=== PATIENT | male | born 1990 | race Hispanic/Latino ===

== ENCOUNTER 2019-01-07 12:32 | Emergency (ER) | payer SELFPAY ==
[2019-01-07] MEDS ORDERED: TETRACAINE HCL 0.5% 4ML OPTH ONE (13:52)
[2019-01-07] MEDS ORDERED: FLUORESCEIN SODIUM 1 MG/WRAP ONE (13:52)
[2019-01-07] MEDS ORDERED: TETANUS & DIPHTHERIA TOX,ADULT 0.5 ML VIAL ONE (14:17)
--- NOTE | 2019-01-07 14:21 | ER ---
Nurse's Notes [facility] Name: Franklin Lin Age: 28 yrs Sex: Male : 1990 Arrival Date: 01/07/2019 Time: 12:35 Bed 10 Private MD: Diagnosis: Injury of conjunctiva and corneal abrasion without foreign body, right eye Presentation: 01/07 12:37 Presenting complaint: Right eye pain and redness x 2 days. Also reports itching hb sensation when eye open. Transition of care: patient was not received from another setting of care. Onset of symptoms was January 06, 2019. Risk Assessment: Do you want to hurt yourself or someone else? Patient reports no desire to harm self or others. Initial Sepsis Screen: Does the patient meet any 2 criteria? No. Patient's initial sepsis screen is negative. Does the patient have a suspected source of infection? No. Patient's initial sepsis screen is negative. Care prior to arrival: None. 12:37 Method Of Arrival: Ambulatory hb 12:37 Acuity: JENNY 4 hb Historical: - Allergies: 12:38 No Known Allergies; hb - Home Meds: 12:38 None [Active]; hb - PMHx: 12:38 None; hb - PSHx: 12:38 None; hb - Immunization history:: Adult Immunizations up to date. - Social history:: Smoking status: Patient/guardian denies using tobacco. - Ebola Screening: : No symptoms or risks identified at this time. Screenin:58 Abuse screen: Denies threats or abuse. Nutritional screening: No deficits noted. tw2 Tuberculosis screening: No symptoms or risk factors identified. Fall Risk None identified. Assessment: 13:50 General: Appears in no apparent distress. Behavior is calm, cooperative, appropriate tw2 for age. Pain: Complains of pain in right eye. Neuro: Level of Consciousness is awake, alert, obeys commands, Oriented to person, place, time, situation. Cardiovascular: Patient's skin is warm and dry. Respiratory: Airway is patent Respiratory effort is even, unlabored, Respiratory pattern is regular, symmetrical. GI: No signs and/or symptoms were reported involving the gastrointestinal system. EENT: Reports increased redness to RIGHT eye. Vital Signs: 12:38 BP 135 / 88; Pulse 84; Resp 16; Temp 98.6; Pulse Ox 100% on R/A; Weight 94.35 kg; hb Height 5 ft. 5 in. (165.10 cm); Pain 1/10; 12:38 Body Mass Index 34.61 (94.35 kg, 165.10 cm) hb Visual Acuity: 14:40 Left Eye Visual acuity 20/25, ; Right Eye Visual acuity 20/40, ; Both Eyes Visual iw acuity 20/25; Without Lenses; ED Course: 12:35 Patient arrived in ED. mr 12:37 Triage completed. hb 12:38 Arm band placed on. hb 13:50 Bed in low position. Call light in reach. tw2 13:57 Champ Diego NP is PHCP. pm1 13:57 Keaton Anderson MD is Attending Physician. pm1 14:00 Assist provider with eye exam of right eye. using fluorescein stain, Performed by iw Champ Diego NP Patient tolerated well. Patient did not have IV access during this emergency room visit. 14:16 Aruna Hughes RN is Primary Nurse. iw Administered Medications: 14:38 Drug: Tetracaine Drops 0.5 % 1 drops Route: Ophthalmic; Site: right eye; iw 14:38 Drug: Tetanus-Diphtheria Toxoid Adult 0.5 ml {Caddie Supervisor: [employer]. Exp: iw 10/30/2019. Lot #: [id number]. } Route: IM; Site: right deltoid; 14:42 Follow up: Response: No adverse reaction iw Outcome: 14:21 Discharge ordered by MD. pm1 14:43 Discharged to home ambulatory, with family. hb 14:43 Condition: stable 14:43 Discharge instructions given to patient, Instructed on discharge instructions, follow up and referral plans. medication usage, Demonstrated understanding of instructions, follow-up care, medications, Prescriptions given X 1. 14:47 Patient left the ED. hb Signatures: Lorraine Mendoza mr Aruna Hughes RN RN iw Champ Diego NP REED OR WIND INSTRUMENT REPAIRER pm1 Bambi Estrada RN RN Linsey Fraser RN RN tw2
--- NOTE | 2019-01-07 14:22 | EDPHYS ---
Physician Documentation [facility] Name: Franklin Lin Age: 28 yrs Sex: Male : 1990 Arrival Date: 01/07/2019 Time: 12:35 Bed 10 Private MD: ED Physician Keaton Anderson HPI: 01/07 14:18 This 28 yrs old Male presents to ER via Ambulatory with complaints of Right pm1 Eye Problem. 14:18 The patient is experiencing foreign body sensation, to the right eye, caused by an pm1 unknown mechanism. Onset: The symptoms/episode began/occurred this morning. Duration: the symptoms are continuous. Aggravated by nothing. Alleviated by nothing. Associated signs and symptoms: Pertinent negatives: chills, fever, headache, runny nose. Patient does not utilize any form of vision correction. Severity of symptoms: in the emergency department the symptoms are unchanged. The patient has not experienced similar symptoms in the past. The patient has not recently seen a physician. Historical: - Allergies: 12:38 No Known Allergies; hb - Home Meds: 12:38 None [Active]; hb - PMHx: 12:38 None; hb - PSHx: 12:38 None; hb - Immunization history:: Adult Immunizations up to date. - Social history:: Smoking status: Patient/guardian denies using tobacco. - Ebola Screening: : No symptoms or risks identified at this time. ROS: 14:18 Constitutional: Negative for fever, chills, and weight loss. pm1 14:18 ENT: Negative for injury, pain, and discharge, Neck: Negative for injury, pain, and swelling, Cardiovascular: Negative for chest pain, palpitations, and edema, Respiratory: Negative for shortness of breath, cough, wheezing, and pleuritic chest pain, Abdomen/GI: Negative for abdominal pain, nausea, vomiting, diarrhea, and constipation, MS/Extremity: Negative for injury and deformity, Skin: Negative for injury, rash, and discoloration, Neuro: Negative for headache, weakness, numbness, tingling, and seizure. 14:18 Eyes: Positive for foreign body sensation, itching, redness, of the right eye. Exam: 14:18 Constitutional: This is a well developed, well nourished patient who is awake, alert, pm1 and in no acute distress. Head/Face: Normocephalic, atraumatic. 14:18 ENT: Nares patent. No nasal discharge, no septal abnormalities noted. Tympanic membranes are normal and external auditory canals are clear. Oropharynx with no redness, swelling, or masses, exudates, or evidence of obstruction, uvula midline. Mucous membranes moist. Neck: Trachea midline, no thyromegaly or masses palpated, and no cervical lymphadenopathy. Supple, full range of motion without nuchal rigidity, or vertebral point tenderness. No Meningismus. Chest/axilla: Normal chest wall appearance and motion. Nontender with no deformity. No lesions are appreciated. Cardiovascular: Regular rate and rhythm with a normal S1 and S2. No gallops, murmurs, or rubs. Normal PMI, no JVD. No pulse deficits. Respiratory: Lungs have equal breath sounds bilaterally, clear to auscultation and percussion. No rales, rhonchi or wheezes noted. No increased work of breathing, no retractions or nasal flaring. Abdomen/GI: Soft, non-tender, with normal bowel sounds. No distension or tympany. No guarding or rebound. No evidence of tenderness throughout. Back: No spinal tenderness. No costovertebral tenderness. Full range of motion. Skin: Warm, dry with normal turgor. Normal color with no rashes, no lesions, and no evidence of cellulitis. MS/ Extremity: Pulses equal, no cyanosis. Neurovascular intact. Full, normal range of motion. 14:18 Eyes: Periorbital structures: appear normal, Pupils: no acute changes, normal size, normal reaction to light, Extraocular movements: intact throughout, Conjunctiva: injected, in the right eye, Corneas: abrasion, is not appreciated, foreign body, is not appreciated, a fluorescein strip employed to appreciate the findings, Sclera: abrasion, of the lateral aspect of conjunctiva of right eye 14:18 Neuro: Orientation: is normal, Motor: is normal, moves all fours. Vital Signs: 12:38 BP 135 / 88; Pulse 84; Resp 16; Temp 98.6; Pulse Ox 100% on R/A; Weight 94.35 kg; hb Height 5 ft. 5 in. (165.10 cm); Pain 1/10; 12:38 Body Mass Index 34.61 (94.35 kg, 165.10 cm) hb Visual Acuity: 14:40 Left Eye Visual acuity 20/25, ; Right Eye Visual acuity 20/40, ; Both Eyes Visual iw acuity 20/25; Without Lenses; MDM: 13:57 Patient medically screened. pm1 14:18 Data reviewed: vital signs. Data interpreted: Pulse oximetry: on room air is 100 %. pm1 Interpretation: normal. Counseling: I had a detailed discussion with the patient and/or guardian regarding: the historical points, exam findings, and any diagnostic results supporting the discharge/admit diagnosis, the need for outpatient follow up, for definitive care, an opthalmologist, to return to the emergency department if symptoms worsen or persist or if there are any questions or concerns that arise at home. 01/07 14:13 Order name: Visual Acuity; Complete Time: 14:39 pm1 01/07 14:13 Order name: Eye Tray; Complete Time: 14:39 pm1 01/07 14:13 Order name: Fluoresene Opth strip; Complete Time: 14:39 pm1 Administered Medications: 14:38 Drug: Tetracaine Drops 0.5 % 1 drops Route: Ophthalmic; Site: right eye; iw 14:38 Drug: Tetanus-Diphtheria Toxoid Adult 0.5 ml {Pension Fund Manager: [employer]. Exp: iw 10/30/2019. Lot #: [id number]. } Route: IM; Site: right deltoid; 14:42 Follow up: Response: No adverse reaction Disposition: 01/07/19 14:21 Discharged to Home. Impression: Injury of conjunctiva and corneal abrasion without foreign body, right eye. - Condition is Stable. - Discharge Instructions: Corneal Abrasion. - Prescriptions for Erythromycin 5 mg/gram (0.5 %) Ophthalmic Ointment - apply 1 ribbon by OPHTHALMIC route every 8 hours; 1 tube. - Medication Reconciliation Form, Thank You Letter, Antibiotic Education, Prescription Opioid Use, Work release form form. - Follow up: Emergency Department; When: As needed; Reason: Worsening of condition. Follow up: Private Physician; When: 2 - 3 days; Reason: Recheck today's complaints, Continuance of care, Re-evaluation by your physician. - Problem is new. - Symptoms have improved. Addendum: 01/09/2019 06:55 Co-signature as Attending Physician, Keaton Anderson MD. g s Signatures: Aruna Hughes RN RN iw Champ Diego NP DEFENCE INTELLIGENCE ANALYST pm1 Bambi Estrada RN RN Keaton Anderson MD MD gs Corrections: (The following items were deleted from the chart) 01/07 14:47 14:21 01/07/2019 14:21 Discharged to Home. Impression: Injury of conjunctiva and hb corneal abrasion without foreign body, right eye. Condition is Stable. Forms are Work release form, Medication Reconciliation Form, Thank You Letter, Antibiotic Education, Prescription Opioid Use. Follow up: Emergency Department; When: As needed; Reason: Worsening of condition. Follow up: Private Physician; When: 2 - 3 days; Reason: Recheck today's complaints, Continuance of care, Re-evaluation by your physician. Problem is new. Symptoms have improved. pm1
[2019-01-07 14:52] VITALS: BP 135/88; TEMP 98.6; O2SAT 100
== END 2019-01-07 14:47 | disposition home or self-care (01) ==
LOC: ER 12:32
DX: S05.01XA Injury of conjunctiva and corneal abrasion without foreign body, right eye, initial encounter (principal); Z23 Encounter for immunization
CPT/HCPCS: 90471; 90714; 99283

== ENCOUNTER 2021-03-11 18:53 | Emergency (ER) | payer OTHER, SELFPAY ==
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
--- NOTE | 2021-03-11 20:37 | RAD REPORT ---
EXAM DESCRIPTION: RAD - Wrist Right 3 View - 03/11/2021 8:07 pm CLINICAL HISTORY: PAIN Pain COMPARISON: No comparisons FINDINGS: Linear lucency is seen in the region of the scaphoid most compatible with a scaphoid fract ure. No dislocation evident. IMPRESSION: Scaphoid fracture.
[2021-03-11] MEDS ORDERED: KETOROLAC 30 MG/ML INJ ONE (20:57)
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
[2021-03-11 22:29] VITALS: BP 140/96; TEMP 98; O2SAT 100
== END 2021-03-11 22:23 | disposition home or self-care (01) ==
LOC: ER 18:53
DX: S06.0X0A Concussion without loss of consciousness, initial encounter (principal); S62.001A Unspecified fracture of navicular [scaphoid] bone of right wrist, initial encounter for closed fracture; S60.811A Abrasion of right wrist, initial encounter; V49.40XA Driver injured in collision with unspecified motor vehicles in traffic accident, initial encounter; Z88.0 Allergy status to penicillin
CPT/HCPCS: 70450; 71045; 72125; 96372; 99284

== ENCOUNTER 2023-01-14 00:48 | Emergency (ER) | payer SELFPAY ==
[2023-01-14] MEDS ORDERED: dexAMETHasone 10 MG/ML VIAL ONE (01:26)
[2023-01-14] MEDS ORDERED: CLINDAMYCIN 900MG/D5W 900 MG/50 ML IVPB IV ONE (01:26)
[2023-01-14] MEDS ORDERED: NA CHLORIDE 0.9% 1,000 ML ONE (01:27)
--- NOTE | 2023-01-14 02:15 | EDPHYS ---
Physician Documentation [facility] Name: Franklin Lin Age: 32 yrs Sex: Male : 1990 Arrival Date: 01/14/2023 Time: 00:48 Bed 5 Private MD: ED Physician Bartolome Collazo HPI: 01/14 01:05 This 32 yrs old Male presents to ER via Ambulatory with complaints of Lips cp Swelling. 01:05 The patient presents with swelling. The problem is located in the upper lip. cp 01:05 Onset: The symptoms/episode began/occurred gradually, last week, and became worse today.cp 01:05 Duration: The symptoms are continuous, and are steadily getting worse. Associated signs cp and symptoms: Pertinent positives: fever, swelling, facial, Pertinent negatives: dysphagia, shortness of breath. 01:05 Patient reports increasing swelling to upper lip since last week after expressing "pus" cp from pimple. Historical: - Allergies: 01:00 No Known Allergies; cm10 - Home Meds: 01:00 None [Active]; cm10 - PMHx: 01:00 None; cm10 - PSHx: 01:00 None; cm10 - Immunization history:: Adult Immunizations unknown. - Social history:: Smoking status: Patient denies any tobacco usage or history of. ROS: 01:10 Constitutional: Negative for fever, poor PO intake, cp 01:10 ENT: Negative for difficulty swallowing, difficulty handling secretions, 01:10 Respiratory: Negative for cough, shortness of breath, wheezing, cp 01:10 Abdomen/GI: Negative for abdominal pain, vomiting, diarrhea, constipation, 01:10 Skin: Positive for cellulitis, swelling, of the upper lip, 01:10 All other systems are negative, Exam: 01:15 Constitutional: The patient appears in no acute distress, alert, awake, non-toxic, well cp developed, well nourished, overweight 01:15 Eyes: Periorbital structures: appear normal, Conjunctiva: normal, no exudate, no cp injection, Sclera: no appreciated abnormality, Lids and lashes: appear normal, bilaterally, 01:15 ENT: External ear(s): are unremarkable, Ear canal(s): are normal, clear, TM's: dullness, bilaterally, Nose: is normal, Mouth: Lips: mild swelling of upper lip with areas of erythema, Oral mucosa: moist, Tongue: is normal, Posterior pharynx: Airway: no evidence of obstruction, patent, swelling, is not appreciated, erythema, is not appreciated, 01:15 Neck: ROM/movement: is normal, is supple, without pain, no range of motions limitations, 01:15 Chest/axilla: Inspection: normal, 01:15 Cardiovascular: Rate: normal, Rhythm: regular, 01:15 Respiratory: the patient does not display signs of respiratory distress, Respirations: normal, no use of accessory muscles, no retractions, labored breathing, is not present, 01:15 Abdomen/GI: Exam negative for discomfort, distension, guarding, Vital Signs: 00:58 BP 150 / 101; Pulse 86; Resp 16 S; Temp 98.1; Pulse Ox 100% on R/A; Weight 102.06 kg; cm10 Height 5 ft. 5 in. ; Pain 0/10; 00:58 Body Mass Index 37.44 (102.06 kg, 165.1 cm) cm10 00:58 Pain Scale: Adult cm10 MDM: 01:16 Patient medically screened. cp 01:30 Differential diagnosis: cellulitis, abscess, herpes, impetigo. cp 02:13 Data reviewed: vital signs, nurses notes, lab test result(s). cp 02:13 Consideration of Admission/Observation Escalation of care including cp admission/observation considered. I considered the following discharge prescriptions or medication management in the emergency department Medications were administered in the Emergency Department. See MAR. Counseling: I had a detailed discussion with the patient and/or guardian regarding the historical points, exam findings, and any diagnostic results supporting the discharge/admit diagnosis, lab results, to return to the emergency department if symptoms worsen or persist or if there are any questions or concerns that arise at home. Response to treatment: the patient's symptoms have mildly improved after treatment, and as a result, I will discharge patient. 01/14 01:03 Order name: IV; Complete Time: 01:20 cp Administered Medications: 01:17 Drug: NS 0.9% IV 1000 ml IV at 1 bolus Per protocol; 1000 mL bolus Route: IV; Rate: 1 la4 bolus; Infused Over: 30 mins; Site: right antecubital; Delivery: Primary tubing; 02:22 Follow up: IV Status: Completed infusion; IV Intake: 1000ml rv 01:19 Drug: Decadron - Dexamethasone IVP 10 mg IVP once Route: IVP; Rate: bolus; Infused la4 Over: 1 mins; Site: right antecubital; : Follow up: Response: No adverse reaction rv 01:20 Drug: Clindamycin IVPB 900 mg IVPB once over 30 mins; (mix in 50 mL) Route: IVPB; Rate: la4 100 ml/hr; Infused Over: 30 mins; Site: right antecubital; Delivery: Primary tubing; : Follow up: Response: No adverse reaction; IV Status: Completed infusion; IV Intake: 50mlrv Disposition Summary: 01/14/23 02:14 Discharge Ordered Notes: Location: Home cp Problem: new cp Symptoms: have improved cp Condition: Stable cp Diagnosis - Cellulitis of face cp Followup: cp - With: Private Physician - When: 1 - 2 days - Reason: Recheck today's complaints Discharge Instructions: - Discharge Summary Sheet cp - Cellulitis, Adult cp Forms: - Medication Reconciliation Form cp - Thank You Letter cp - Antibiotic Education cp - Prescription Opioid Use cp - Patient Portal Instructions cp - Leadership Thank You Letter cp - Work release form as6 Prescriptions: - mupirocin 2 % Topical ointment - apply 1 application TOPICAL route 3 times per day; 15 gram tube; Refills: 0, cp Product Selection Permitted - Clindamycin HCl 300 mg Oral Capsule - take 1 capsule ORAL route every 6 hours for 10 days; 40 capsule; Refills: 0, cp Product Selection Permitted Addendum: 01/15/2023 03:02 Co-signature as Attending Physician, Bratolome Collazo MD. e c2 Signatures: Dispatcher [employer] Carmine Vazquez PA PA cp Martinez, Clarissa RN RN cm10 Bartolome Collazo MD MD ec2 Saleem Way RN RN la4 Matty Parmar RN rv Corrections: (The following items were deleted from the chart) 01/14 01:01 01:00 Allergies: PENICILLINS; cm10 cm10
--- NOTE | 2023-01-14 02:15 | ER ---
Nurse's Notes [facility] Name: Franklin Lin Age: 32 yrs Sex: Male : 1990 Arrival Date: 01/14/2023 Time: 00:48 Bed 5 Private MD: Diagnosis: Cellulitis of face Presentation: 01/14 00:58 Chief complaint: Patient states: upper lip swelling onset last week. Pt states that he cm10 had what looked like a pimple and he popped it. Pt states that now swelling is getting worse. No difficulty swallowing. Coronavirus screen: Vaccine status: Patient reports being unvaccinated. Client denies travel out of the [place] in the last 14 days. Ebola Screen: Patient denies travel to an Ebola-affected area in the 21 days before illness onset. No symptoms or risks identified at this time. Initial Sepsis Screen: Does the patient meet any 2 criteria? No. Patient's initial sepsis screen is negative. Does the patient have a suspected source of infection? No. Patient's initial sepsis screen is negative. Risk Assessment: Do you want to hurt yourself or someone else? Patient reports no desire to harm self or others. Onset of symptoms was January 14, 2023. 00:58 Method Of Arrival: Ambulatory cm10 00:58 Acuity: JENNY 3 cm10 Triage Assessment: 01:00 General: Appears in no apparent distress. comfortable, Behavior is calm, cooperative. cm10 Pain: Denies pain. EENT: No deficits noted. No signs and/or symptoms were reported regarding the EENT system. Neuro: No deficits noted. Level of Consciousness is awake, alert, obeys commands, Oriented to person, place, time, situation. Cardiovascular: No deficits noted. Patient's skin is warm and dry. Respiratory: No deficits noted. Airway is patent Respiratory effort is even, unlabored, Respiratory pattern is regular, symmetrical. GI: No deficits noted. No signs and/or symptoms were reported involving the gastrointestinal system. : No deficits noted. No signs and/or symptoms were reported regarding the genitourinary system. Derm: No deficits noted. Skin is intact, Skin is pink, warm \T\ dry. Musculoskeletal: No deficits noted. Range of motion: intact in all extremities. Historical: - Allergies: 01:00 No Known Allergies; cm10 - Home Meds: 01:00 None [Active]; cm10 - PMHx: 01:00 None; cm10 - PSHx: 01:00 None; cm10 - Immunization history:: Adult Immunizations unknown. - Social history:: Smoking status: Patient denies any tobacco usage or history of. Screenin:02 [facility] ED Fall Risk Assessment (Adult) History of falling in the last 3 months, cm10 including since admission No falls in past 3 months (0 pts) Confusion or Disorientation No (0 pts) Intoxicated or Sedated No (0 pts) Impaired Gait No (0 pts) Mobility Assist Device Used No (0 pt) Altered Elimination No (0 pt) Score/Fall Risk Level 0 - 2 = Low Risk Oriented to surroundings, Maintained a safe environment, Educated pt \T\ family on fall prevention, incl call for assistance when getting out of bed, Assessed \T\ reinforced patient's understanding of fall precautions, Hourly rounding (assess needs \T\ fall precautionary measures) done. Abuse screen: Denies threats or abuse. Denies injuries from another. Nutritional screening: No deficits noted. Tuberculosis screening: No symptoms or risk factors identified. Vital Signs: 00:58 BP 150 / 101; Pulse 86; Resp 16 S; Temp 98.1; Pulse Ox 100% on R/A; Weight 102.06 kg; cm10 Height 5 ft. 5 in. ; Pain 0/10; 00:58 Body Mass Index 37.44 (102.06 kg, 165.1 cm) cm10 00:58 Pain Scale: Adult cm10 ED Course: 00:51 Patient arrived in ED. mr 00:56 Carmine Patel PA is PHCP. cp 00:56 Bartolome Collazo MD is Attending Physician. cp 01:00 Triage completed. cm10 01:02 Arm band placed on Patient placed in waiting room. cm10 01:02 Patient has correct armband on for positive identification. Provided Education on: ER cm10 process and procedures.. Cardiac monitoring not applicable on this patient. 01:02 No provider procedures requiring assistance completed. Patient did not have IV access cm10 during this emergency room visit. 01:05 Kraig Treviño, AURY is Primary Nurse. bp 01:21 Inserted saline lock: 20 gauge 22 gauge in right antecubital area, using aseptic la4 technique. Administered Medications: 01:17 Drug: NS 0.9% IV 1000 ml IV at 1 bolus Per protocol; 1000 mL bolus Route: IV; Rate: 1 la4 bolus; Infused Over: 30 mins; Site: right antecubital; Delivery: Primary tubing; : Follow up: IV Status: Completed infusion; IV Intake: 1000ml rv 01:19 Drug: Decadron - Dexamethasone IVP 10 mg IVP once Route: IVP; Rate: bolus; Infused la4 Over: 1 mins; Site: right antecubital; : Follow up: Response: No adverse reaction rv 01:20 Drug: Clindamycin IVPB 900 mg IVPB once over 30 mins; (mix in 50 mL) Route: IVPB; Rate: la4 100 ml/hr; Infused Over: 30 mins; Site: right antecubital; Delivery: Primary tubing; Follow up: Response: No adverse reaction; IV Status: Completed infusion; IV Intake: 50mlrv Medication: 01:02 VIS not applicable for this client. cm10 Intake: 02: IV: 1000ml; Total: 1000ml. rv : IV: 50ml; Total: 1050ml. rv Outcome: 02:14 Discharge ordered by MD. cp 02:22 Discharged to home ambulatory, rv 02:22 Condition: good 02:22 Discharge instructions given to patient, Instructed on discharge instructions, follow up and referral plans. medication usage, Demonstrated understanding of instructions, follow-up care, medications, Prescriptions given X 2, 02:23 Patient left the ED. rv Signatures: Lorraine Mendoza, Reg Reg mr Carmine Patel, PA PA cp Kraig Treviño RN RN bp Matty Parmar RN RN rv Martinez, Clarissa, RN RN cm10 Saleem [address] RN RN la4 Corrections: (The following items were deleted from the chart) 01:01 01:00 Allergies: PENICILLINS; cm10 cm10 01:04 00:58 Acuity: JENNY 4 cm10 cm10
[2023-01-14 03:58] LABS: Potassium 3.5 mEq/L (3.5-5.1)
[2023-01-14 03:59] LABS: Absolute Lymphocytes (CBC) 2.5 K/uL (0.7-4.9); Hematocrit 42.9 % (39.6-49.0); Lymphocytes % 23.7 % (15.3-44.8); MCV 82.8 fL (80-100); MPV 8.4 fL (7.6-11.3); Platelets 247 thou/uL (152-406); RBC Red Blood Cell Count 5.19 M/uL (4.33-5.43)
[2023-01-14 05:48] VITALS: BP 150/101; TEMP 98.1; O2SAT 100
== END 2023-01-14 02:23 | disposition home or self-care (01) ==
LOC: ER 00:48
DX: L03.211 Cellulitis of face (principal)
CPT/HCPCS: 36415; 80048; 85025; J1100; J7030